=== PATIENT | male | born 2000 | race Two or more races ===

== ENCOUNTER 2023-01-04 09:55 | Emergency (ER) | payer OTHER ==
[2023-01-04 10:08] VITALS: RESP 16; TEMP 98.1; BMI 23.3
[2023-01-04 10:36] VITALS: BP 142/74; PULSE 80
[2023-01-04] MEDS ORDERED: ACETAMINOPHEN 325 MG TABLET (FP) PO ONE (10:49)
[2023-01-04] MEDS ORDERED: METHOCARBAMOL 750 MG TABLET PO ONE (10:49)
[2023-01-04] MEDS ORDERED: KETOROLAC TROMETHAMINE 30 MG/1 ML VIAL IM ONE (10:49)
[2023-01-04] MEDS ORDERED: ACETAMINOPHEN 325 MG TABLET (FP) ONE (10:53)
[2023-01-04] MEDS ORDERED: METHOCARBAMOL 500 MG TABLET ONE (10:54)
[2023-01-04] MEDS ORDERED: KETOROLAC TROMETHAMINE 30 MG/1 ML VIAL ONE (10:54)
== END 2023-01-04 12:58 | disposition home or self-care (01) ==
LOC: JERFT 09:55 → JER 09:55 → JERFT 12:58
PROC: 3E0233Z Introduction of Anti-inflammatory into Muscle, Percutaneous Approach (ICD-10-PCS; principal; 2023-01-04)
DX: M25.562 Pain in left knee (principal); M25.512 Pain in left shoulder; M54.50 Low back pain, unspecified; V43.52XA Car driver injured in collision with other type car in traffic accident, initial encounter
CPT/HCPCS: 72100-TC-FY; 99284-25

== ENCOUNTER 2023-03-08 00:15 | Emergency (ER) | payer OTHER ==
[2023-03-08 00:20] VITALS: BP 156/72; PULSE 88; RESP 20; TEMP 98.9; BMI 23.5
[2023-03-08] MEDS ORDERED: ACETAMINOPHEN 500 MG TABLET (FP) PO ONE (00:58)
[2023-03-08] MEDS ORDERED: ACETAMINOPHEN 325 MG TABLET (FP) ONE (01:12)
== END 2023-03-08 02:16 | disposition home or self-care (01) ==
LOC: JER 00:15
DX: R51.9 Headache, unspecified (principal); M79.10 Myalgia, unspecified site; J34.89 Other specified disorders of nose and nasal sinuses; U07.1 COVID-19; R05.1 Acute cough
CPT/HCPCS: 0241U-QW; 99283-25

== ENCOUNTER 2023-08-17 19:16 | Emergency (ER) | payer OTHER ==
[2023-08-17 19:54] VITALS: TEMP 98.5; BMI 22.1
[2023-08-17] MEDS ORDERED: ACETAMINOPHEN INJECTION 100 ML IVPB ONE (21:36)
[2023-08-17] MEDS: ACETAMINOPHEN 1000 MG/100 ML BAG IVPB ONE (21:38)
[2023-08-17 21:40] LABS: BASO % 0.1 % (0-2.0); HEMATOCRIT 42.6 % (35.4-49); HEMOGLOBIN 14.5 GM/dL (11.7-16.9); LYMPH % 5.2 % (8-40); MCH 29.2 pg (25.7-33.7); MEAN PLT VOLUME 7.1 fl (7.5-11.1); NEUT % 87.7 % (42.8-82.8); PLATELET COUNT 287 10^3/uL (134-434); RBC 4.96 M/mm3 (4.00-5.60); RDW 13.9 % (11.9-15.9); WHITE BLOOD COUNT 17.6 K/mm3 (4.0-10.0)
[2023-08-17 21:56] LABS: CHLORIDE 106 mmol/L (98-107); POTASSIUM 4.3 mmol/L (3.5-5.1); SODIUM 140 mmol/L (136-145)
[2023-08-17] MEDS ORDERED: ONDANSETRON 4 MG/2 ML VIAL ONE (21:56)
[2023-08-17 21:58] LABS: CALCIUM 9.3 mg/dL (8.5-10.1)
[2023-08-17] MEDS: ONDANSETRON 4 MG/2 ML VIAL IVPUSH ONE (21:58)
[2023-08-17 21:59] LABS: ALBUMIN 4.1 g/dl (3.4-5.0); ANION GAP 6 mmol/L (4-13); BLOOD UREA NITROGEN 15.9 mg/dL (7-18); CO2 28 mmol/L (21-32); GLUCOSE,RANDOM 102 mg/dL (74-106)
[2023-08-17 22:01] LABS: SGPT/ALT 15 U/L (13-61)
[2023-08-17 22:02] LABS: CREATININE 1.1 mg/dL (0.55-1.3); SGOT/AST 15 U/L (15-37)
[2023-08-17 22:03] LABS: BILIRUBIN,TOTAL 0.5 mg/dL (0.2-1)
[2023-08-17 22:04] LABS: ALK PHOS 51 U/L (45-117)
[2023-08-18 03:35] VITALS: BP 119/62; PULSE 75; RESP 18
== END 2023-08-18 05:27 | disposition home or self-care (01) ==
LOC: JER 19:16
PROC: 3E033NZ Introduction of Analgesics, Hypnotics, Sedatives into Peripheral Vein, Percutaneous Approach (ICD-10-PCS; principal; 2023-08-17)
PROC: 3E033GC Introduction of Other Therapeutic Substance into Peripheral Vein, Percutaneous Approach (ICD-10-PCS; 2023-08-17)
DX: T40.711A Poisoning by cannabis, accidental (unintentional), initial encounter (principal); F12.920 Cannabis use, unspecified with intoxication, uncomplicated
CPT/HCPCS: 36415; 70450-TC; 80053; 80307; 85025; 93005; 93010; 99285-25; J0131

== ENCOUNTER 2023-12-19 16:07 | Emergency (ER) | payer OTHER ==
[2023-12-19 16:18] VITALS: BP 144/74; PULSE 75; RESP 13; TEMP 98.2; BMI 21.5
== END 2023-12-19 17:03 | disposition home or self-care (01) ==
LOC: JER 16:07 → JERFT 16:07
DX: M54.50 Low back pain, unspecified (principal); M25.562 Pain in left knee; M54.2 Cervicalgia; V49.40XA Driver injured in collision with unspecified motor vehicles in traffic accident, initial encounter; Y92.410 Unspecified street and highway as the place of occurrence of the external cause
CPT/HCPCS: 99282-25